=== PATIENT | female | born 1980 | race Caucasian/White ===

== ENCOUNTER 2016-07-10 18:11 | Inpatient (IN) | payer OTHER, MEDICAID ==
[~2016-07-10] VITALS: Ht 175.3 cm; Wt 54.9 kg
[~2016-07-10 18:11] MED LIST: BACLOFEN; BISA10SU8 RC; CALCIUM PO; CARB15DR4 OP; CYCL30DR OP; DENO60DI SQ; ESLI800T GT; LEVE500T13 PO; LEVO50TA8 GT; MULT PO; NEO/3.5O OP; PETR3.5O OP; PILO5TAB PO; PLA200 PO; TIZA4TAB11 PO; TOPI200T PO; TRAZ-123 GT; UBID50TA3 PO; VORT10TA GT; [UNRECOGNIZED DRUG - OTHER] RC
[2016-07-10 20:00] VITALS: BP 106/73; PULSE 55; RESP 18; TEMP 98.5; O2SAT 98
--- NOTE | 2016-07-10 20:00 | NUR ---
Admission Assessment Received patient lying in bed, awake, alert but non-verbal. Able to follow simple commands and nod "yes" and "no". Mother is at the bedside. MD called for admission orders, all new orders noted. MD to see patient tonight and reconcile medications, per mother, PM medications already administered for tonight. Assessment complete, vital signs stable, no complain of pain at this time. Kishan-Staton button noted to left abdomen, Baclofen pump noted to right abdomen. IV was started to right forearm, #22 gauge, patient tolerated well. Plan of care discussed with patient and mother, mother verbalized understanding. Patient is not verbally able to make needs known, adaptive call light is within reach, all fall and safety precautions in place, will continue to monitor closely for change in patient status.
[2016-07-10] MEDS ORDERED: MELA1TAB29 PO (20:22)
[2016-07-10 21:21] LABS: BASOPHILS % (AUTO) 0.8 % (0.0-2.0); EOSINOPHILS # (AUTO) 0.3 K/uL (0.0-0.4); EOSINOPHILS % (AUTO) 6.7 % (0.0-4.0); HEMOGLOBIN 12.4 g/dL (12.0-16.0); LYMPHOCYTES # (AUTO) 1.8 K/uL (1.0-5.5); LYMPHOCYTES % (AUTO) 42.2 % (20.5-51.5); MEAN CORPUSCULAR HEMOGLOBIN 31 pg (27-31); MEAN CORPUSCULAR HGB CONC 35 % (32-36); MEAN CORPUSCULAR VOLUME 90 fL (79.0-98.0); MONOCYTES # (AUTO) 0.3 K/uL (0.0-1.0); MONOCYTES % (AUTO) 7.2 % (1.7-9.3); NEUTROPHILS # (AUTO) 1.8 K/uL (1.8-7.7); NEUTROPHILS % (AUTO) 43.1 % (40.0-70.0); PLATELET COUNT (AUTO) 189 K/uL (130-430); RED BLOOD CELL COUNT(AUTO) 3.99 MIL/uL (4.2-6.2); RED CELL DISTRIBUTION WIDTH 12.7 % (9.0-15.0); WHITE BLOOD COUNT (AUTO) 4.2 K/uL (4.8-10.8)
[2016-07-10 21:28] LABS: CALCIUM 9.1 mg/dL (8.4-11.0); CREATININE 0.56 mg/dL (0.55-1.30); POTASSIUM 3.3 mmol/L (3.5-5.1)
[2016-07-10 21:33] LABS: ALBUMIN 3.8 g/dL (3.4-4.8); TOTAL BILIRUBIN 0.2 mg/dL (0.0-1.0)
--- NOTE | 2016-07-10 22:16 | NUR ---
RN Rounds Patient is resting quietly in bed, no acute distress noted, mother is at the bedside. Warm blanket provided and patient made comfortable in bed. Adaptive call light is within reach, all fall and safety precautions in place, will continue to monitor closely.
[2016-07-10 22:25] VITALS: BP 106/73; PULSE 55; RESP 18; TEMP 98.5; O2SAT 98
[2016-07-10] MEDS ORDERED: MILK OF MAGNESIA 30 ML UDC PO PRN (23:45)
--- NOTE | 2016-07-11 00:24 | NUR ---
RN Rounds Patient is sleeping but easily arousable, no acute distress noted. Patient repositioned and made comfortable in bed with pillow support. Call light is within reach, all fall and safety precautions in place, will continue to monitor closely.
[2016-07-11] MEDS ORDERED: AZITHROMYCIN 500 MG/VIAL (ZITHROMAX) IV ONE (00:59)
[2016-07-11] MEDS: KCL 20 mEq in D5NS 1000 mL 1,000 ML IV SCH ×2 (02:03→15:32)
[2016-07-11] MEDS: AZITHROMYCIN 500 MG in NS 250 ML IV SCH (02:04)
[2016-07-11 02:15] VITALS: BP 96/60; PULSE 61; RESP 18; TEMP 96.1; O2SAT 96
--- NOTE | 2016-07-11 02:31 | NUR ---
RN Rounds Patient is resting quietly in bed, requested to get up to the restroom, was assisted by 2 nurses and safely back to bed. Made comfortable in bed with pillow support. Tube feeding and IV fluids infusing well. Call light is within reach, encouraged to call with all needs. All fall and safety precautions in place, will continue to monitor closely.
[2016-07-11 03:56] VITALS: BP 106/64; PULSE 56; RESP 18; TEMP 96.6; O2SAT 97
--- NOTE | 2016-07-11 04:33 | NUR ---
RN Rounds Patient is resting quietly in bed, no acute distress noted. Patient was assisted to the restroom and safely back to bed. Vital signs stable, tube feeding and IV fluids infusing well. Call light is within reach, all fall and safety precautions in place, will continue to monitor closely.
[2016-07-11] MEDS ORDERED: LEVOTHYROXINE SODIUM 0.05 MG TABLET GT SCH (06:00)
--- NOTE | 2016-07-11 07:09 | NUR ---
Closing Notes Patient is resting quietly in bed, complained of nausea, MD paged x2, will be paged again. Patient made comfortable in bed. Patient is stable. SBAR report was endorsed to AM nurse at bedside.
--- NOTE | 2016-07-11 07:36 | NUR ---
Called Dr Smalls called back, new orders noted for Zofran 4mg IVP Q4 PRN. Endorsed to AM nurse.
[2016-07-11] MEDS ORDERED: ONDANSETRON HCL 4 MG/2 ML VIAL IVP PRN (07:45)
--- NOTE | 2016-07-11 08:00 | NUR ---
am notes pt in bed awake, non verbal. ivf infusing well on the rt forearm of d5ns +20meq kcl at 75. gt feeding infusing at this time. no acute distress noted. safety precaution observed. on bed alarm. will monitor.
[2016-07-11 08:04] VITALS: BP 100/61; PULSE 97; RESP 16; TEMP 97.4; O2SAT 97
--- NOTE | 2016-07-11 08:50 | NUR ---
Nutrition Update Levi Scale 16 noted. Pt admitted for hypothermia. Diet: Peptamen 1.5 at 60 ml/hr, Free Water Flush: 100 Q6H via GT BMI: 18 kg/m2 RD to follow per nutrition care standards.
[2016-07-11] MEDS ORDERED: DEXAMETH OP SCH (09:00)
[2016-07-11] MEDS ORDERED: levETIRAcetam 500 MG TABLET PO SCH (09:00)
[2016-07-11] MEDS: cycloSPORINE 0.05%, 0.4 ML OPHTHALMIC EMULSION DROPERETTE OP SCH ×2 (09:00→09:48)
[2016-07-11] MEDS ORDERED: PILOCARPINE 5 MG PO SCH (09:00)
[2016-07-11] MEDS ORDERED: NEO OP SCH (09:00)
[2016-07-11] MEDS ORDERED: POLYMYX B SULF OP SCH (09:00)
[2016-07-11 09:03] LABS: BILIRUBIN,URINE NEGATIVE (NEGATIVE); BLOOD, URINE 3+ (NEGATIVE); CLARITY/URINE CLEAR (CLEAR); COLOR,URINE YELLOW (YELLOW); GLUCOSE,URINE NEGATIVE (NEGATIVE); KETONES,URINE NEGATIVE (NEGATIVE); LEUKOCYTE ESTERASE ,URINE NEGATIVE (NEGATIVE); NITRITE, URINE NEGATIVE (NEGATIVE); PROTEIN URINE NEGATIVE (NEGATIVE); UROBILINOGEN,URINE 0.2 (0.2-1.0)
[2016-07-11 09:08] LABS: BACTERIA,URINE RARE /HPF (None Seen); RBC,URINE >100 /HPF (0-3); WBC,URINE 0-3 /HPF (0-3)
[2016-07-11] MEDS: TOPIRAMATE 100 MG TABLET(Topamax) PO SCH ×2 (09:46→21:00)
[2016-07-11] MEDS: MULTIVITAMINS TAB 1 TABLET PO SCH (09:47)
[2016-07-11] MEDS: HYDROXYCHLOROQUINE SULFATE 200 MG TABLET PO SCH (09:47)
[2016-07-11] MEDS: BISACODYL 10 MG/SUPPOSITORY RC SCH (09:48)
--- NOTE | 2016-07-11 10:00 | NUR ---
gt feeing Pt's mom at bedside. wants to stop feeding at this time and resume it tonight.
[2016-07-11] MEDS ORDERED: MILK OF MAGNESIA 30 ML UDC PO PRN (10:45)
[2016-07-11 10:47] VITALS: Ht 175.3 cm; Wt 54.9 kg
--- NOTE | 2016-07-11 11:30 | NUR ---
ROUNDS SEEN BY DR. FERRIS AND SPOKE TO PT MOM AT BEDSIDE. PER . OKAY TO USE HOME MEDICATIONS AT HOME.
--- NOTE | 2016-07-11 11:54 | NUR ---
PT HAS A QUANG BUTTON ON LEFT ABD. SKIN IN TACT AND DRY. ROTATED AND CHECKED PLACEMENT BEFORE FEEDING AND MEDICATION. HOB UP. INCISION ON RIGHT LOWER ABD. SKIN IN TACT WITH NO SIGNS OF INFECTION. Addendum: 07/11/16 at 1157 by Jeannette HALL Amended: Links added.
[2016-07-11 12:00] VITALS: BP 108/67; PULSE 72; RESP 18; TEMP 98; O2SAT 99
[2016-07-11] MEDS ORDERED: COMMUNICATION ORDER XX ONE (13:00)
--- NOTE | 2016-07-11 13:00 | NUR ---
BATHROOM ASSISTED TO THE BATHROOM WITH 2 PERSONS ASSIST. PT HAD BOWEL MOVEMENT AFTER SUPPOSITORY GIVEN.
--- NOTE | 2016-07-11 13:25 | NUR ---
home meds gen teal eye ointment x2 and pilocarpine meds given to pharmacy for labeling. pt mom will bring the brintellex meds from home.
[2016-07-11 14:10] VITALS: BP 102/54; PULSE 62; RESP 16; TEMP 98.5; O2SAT 99
[2016-07-11] MEDS: PILOCARPINE 5 MG PO SCH ×2 (15:29→21:40)
[2016-07-11 16:00] VITALS: BP 108/67; PULSE 62; RESP 18; TEMP 98; O2SAT 99
--- NOTE | 2016-07-11 16:03 | NUR ---
NOTES IN BED, RESTING MOM AT BEDSIDE. NO S/S OF PAIN OR DISCOMFORT. REPOSITIONED FOR COMFORT. WILL MONITOR.
[2016-07-11] MEDS ORDERED: [UNRECOGNIZED DRUG - OTHER] PO SCH (17:00)
--- NOTE | 2016-07-11 18:27 | NUR ---
NOTES ASSISTED TO THE BATHROOM WITH 2 PERSONS ASSIST. FAMILY AT BEDSIDE. IVF INFUSING WELL. SIT UP FOR DINNER. DENIES ANY PAIN OR DISCOMFORT. ALL NEEDS MEET. WILL ENDORSE
[2016-07-11] MEDS: [UNRECOGNIZED DRUG - OTHER] OP SCH (18:49)
--- NOTE | 2016-07-11 20:00 | NUR ---
ROUNDS PATIENT RESTING COMFORTABLY IN BED, NOT IN DISTRESS, VITALS STABLE, NON VERBAL, NO SIGNS OF ANY PAIN AND DISCOMFORT AT THIS TIME. ASSESSMENT DONE AND DOCUMENTED. SEE FLOWSHEET. NEEDS ATTENDED TO. FAMILY AT THE BEDSIDE. SAFETY AND FALL PRECAUTION MEASURES IN PLACED. BED IN LOW AND LOCKED POSITION. CALL LIGHT PLACED WITHIN REACH.
[2016-07-11] MEDS ORDERED: tiZANidine HCL 4 MG TABLET PO SCH (21:00)
--- NOTE | 2016-07-11 21:30 | NUR ---
MEDICATIONS DUE MEDICATIONS GIVEN SCHEDULED, TOLERATED WELL. WILL CONTINUE TO MONITOR.
[2016-07-11] MEDS: SENNOSIDES 8.6 MG TABLET GT SCH (21:35)
[2016-07-11] MEDS: traZODone HCL 50 MG TABLET (DESYREL) GT SCH (21:37)
[2016-07-11] MEDS: levETIRAcetam 500 MG TABLET GT SCH (21:39)
[2016-07-11] MEDS: VORTIOXETINE 10 MG PO SCH (21:40)
[2016-07-11] MEDS: GENTEAL TEARS OP SCH (21:41)
--- NOTE | 2016-07-12 00:08 | NUR ---
PATIENT RESTING: Patient resting quietly. No acute distress noted. Vital signs within normal range.
[2016-07-12] MEDS: AZITHROMYCIN 500 MG in NS 250 ML IV SCH (00:40)
--- NOTE | 2016-07-12 02:15 | NUR ---
PATIENT RESTING: Patient resting quietly. No acute distress noted. Vital signs within normal range.
--- NOTE | 2016-07-12 04:39 | NUR ---
PATIENT RESTING: Patient resting quietly. No acute distress noted. Vital signs within normal range.
[2016-07-12 05:17] VITALS: BP 93/57; PULSE 75; RESP 16; TEMP 96.3; O2SAT 93
[2016-07-12] MEDS: [UNRECOGNIZED DRUG - OTHER] OP SCH ×3 (06:41→17:23)
[2016-07-12] MEDS: KCL 20 mEq in D5NS 1000 mL 1,000 ML IV SCH (06:41)
--- NOTE | 2016-07-12 06:50 | NUR ---
CLOSING NOTES PATIENT AWAKE, VITALS STABLE, ALL NEEDS ATTENDED TO. WILL ENDORSE TO INCOMING SHIFT NURSE.
--- NOTE | 2016-07-12 08:00 | NUR ---
initial notes rec patient awake alert but non verbally responsive with hob elevated. ivf infusing well on the r forearm. no infiltration noted. with bilateral padded rails to prevent injury. resp easy an unlabored and and no acute distress noted. with gaby type gt and clamped at this time . bed in low position and side rails up and locked.call light withn reach and able to make needs known
[2016-07-12] MEDS: BISACODYL 10 MG/SUPPOSITORY RC SCH (10:11)
[2016-07-12] MEDS: MULTIVITAMINS TAB 1 TABLET PO SCH (10:11)
[2016-07-12] MEDS: levETIRAcetam 500 MG TABLET GT SCH (10:14)
[2016-07-12] MEDS: TOPIRAMATE 100 MG TABLET(Topamax) PO SCH (10:15)
[2016-07-12] MEDS: HYDROXYCHLOROQUINE SULFATE 200 MG TABLET PO SCH (10:19)
--- NOTE | 2016-07-12 10:30 | NUR ---
rounds mother at the bedside and help out with with adl at the bedside.no sob noted. waited for mom for the meds to be given . showed techniques how to give to the her gaby tube for meds.
[2016-07-12 12:06] VITALS: BP 109/68; PULSE 65; RESP 17; TEMP 97.8; O2SAT 98
--- NOTE | 2016-07-12 13:31 | NUR ---
rounds ambulated to the br with max assistance w ith 2 persons and kandace well. no sonb noted.
--- NOTE | 2016-07-12 15:57 | NUR ---
rounds 12 0z of water given through the gaby gt as per mothers request and kandace well. nmo acute distress noted.
[2016-07-12 16:52] VITALS: BP 110/70; PULSE 70; RESP 17; TEMP 98; O2SAT 98
--- NOTE | 2016-07-12 17:00 | NUR ---
PHYSICAL THERAPY CO-SIGN The Physical Therapy Progress Notes documented by Dryer And Washer Mechanic have been reviewed. Reviewed/Co-Signed by: Candida Brown PT Documentation Done by: FRANC CARDONA RECEIVING SUPERVISOR Addendum: 07/13/16 at 0836 by Candida Brown PT Amended: Links added.
--- NOTE | 2016-07-12 17:29 | NUR ---
rounds resting comfortably at this. gel eye med given early per mother's request. no acute distress noted.
--- NOTE | 2016-07-12 18:30 | NUR ---
closing notes resting comfortably in bed. mother at the bedside. no c/o pain. pt ambulated to the br with max assists. no acute distress. no sob noted. stable and needs attended.
--- NOTE | 2016-07-12 19:50 | NUR ---
ROUNDS PATIENT RESTING COMFORTABLY IN BED, NOT IN DISTRESS, VITALS STABLE, NO PAIN AND DISCOMFORT AT THIS TIME. ASSESSMENT DONE AND DOCUMENTED. SEE FLOWSHEET. NEEDS ATTENDED TO. SAFETY AND FALL PRECAUTION MEASURES IN PLACED. BED IN LOW AND LOCKED POSITION. BED ALARM ON. CALL LIGHT PLACED WITHIN REACH.
--- NOTE | 2016-07-12 21:30 | NUR ---
MEDICATION DUE MEDICATIONS GIVEN SCHEDULED, TOLERATED WELL. WILL CONTINUE TO MONITOR.
[2016-07-12] MEDS: traZODone HCL 50 MG TABLET (DESYREL) GT SCH (21:45)
[2016-07-12] MEDS: SENNOSIDES 8.6 MG TABLET GT SCH (21:45)
[2016-07-12] MEDS: KEPPRA 500 MG GT SCH (21:48)
[2016-07-12] MEDS: TOPAMAX 200 MG GT SCH (21:49)
[2016-07-12] MEDS: ZANAFLEX 4 MG GT SCH (21:50)
[2016-07-12] MEDS: GENTEAL TEARS OP SCH (21:51)
[2016-07-12] MEDS: VORTIOXETINE 10 MG PO SCH (21:51)
--- NOTE | 2016-07-13 00:10 | NUR ---
PATIENT RESTING: Patient resting quietly. No acute distress noted. Vital signs within normal range.
[2016-07-13] MEDS: AZITHROMYCIN 500 MG in NS 250 ML IV SCH (00:35)
[2016-07-13] MEDS: KCL 20 mEq in D5NS 1000 mL 1,000 ML IV SCH ×2 (00:38→15:47)
--- NOTE | 2016-07-13 02:15 | NUR ---
ROUNDS PATIENT ASLEEP, NO SIGNS OF SOB NOR ANY PAIN AND DISCOMFORT NOTED. WILL CONTINUE TO MONITOR.
--- NOTE | 2016-07-13 04:05 | NUR ---
PATIENT RESTING: Patient resting quietly. No acute distress noted. Vital signs within normal range.
[2016-07-13 04:40] VITALS: BP 100/58; PULSE 67; RESP 18; TEMP 97.3; O2SAT 98
[2016-07-13] MEDS: [UNRECOGNIZED DRUG - OTHER] OP SCH ×3 (06:23→19:13)
--- NOTE | 2016-07-13 06:59 | NUR ---
CLOSING NOTES PATIENT REMAINED STABLE, ALL NEEDS ATTENDED TO. SAFETY AND FALL PRECAUTION MEASURES MAINTAINED. BED IN LOW AND LOCKED POSITION. CALL LIGHT PLACED WITHIN REACH.
[2016-07-13 08:00] VITALS: BP 112/93; PULSE 68; RESP 18; TEMP 97.6
--- NOTE | 2016-07-13 08:00 | NUR ---
initial notes rec patient in bed with ivf infusing well on the l forearm with hob elevated. no sob noted. resp easy and unlabored. bed in low position and side rails up and locked. call light within reached and knows when to call for assistance. will continue to monitor patient.
--- NOTE | 2016-07-13 10:00 | NUR ---
rounds pt was up to the br with max assists and had a bowel movement. am care was also rendered. no sob noted. mother at bedside. due meds given through the gaby tube and kandace well. no residual noted.
[2016-07-13] MEDS: MULTIVITAMINS TAB 1 TABLET PO SCH (10:15)
[2016-07-13] MEDS: TOPAMAX 200 MG GT SCH ×2 (10:16→21:45)
[2016-07-13] MEDS: KEPPRA 500 MG GT SCH ×2 (10:16→21:44)
[2016-07-13] MEDS: PILOCARPINE 5 MG PO SCH (10:17)
[2016-07-13] MEDS: BISACODYL 10 MG/SUPPOSITORY RC SCH (10:17)
[2016-07-13] MEDS: HYDROXYCHLOROQUINE SULFATE 200 MG TABLET PO SCH (10:17)
[2016-07-13 11:21] VITALS: BP 103/70; PULSE 65; RESP 16; TEMP 98.2; O2SAT 99
--- NOTE | 2016-07-13 12:00 | NUR ---
rounds up and walking with p.t in the hallway and kandace well with max assists. no acute distress noted.
--- NOTE | 2016-07-13 14:00 | NUR ---
rounds flushed gt with 240 cc sterile water as per moms' request. no sob noted. call light withn reached and requested for the br and with max assist with 2 nurses/ kandace well.
--- NOTE | 2016-07-13 15:14 | NUR ---
PHYSICAL THERAPY CO-SIGN The Physical Therapy Progress Notes documented by Field Organizer have been reviewed. Reviewed/Co-Signed by: Mercy Bradley, PT Documentation Done by: Donovan Almendarez PTA I concur with the documentation of this CONVEYOR SYSTEM DISPATCHER. Plan: continue PT as per plan of care. Addendum: 07/13/16 at 1515 by Mercy Bradley PT Amended: Links added.
--- NOTE | 2016-07-13 16:00 | NUR ---
rounds was taken to the br with max assists and kandace well. sleeps at intervals. no acute distress.
[2016-07-13 16:11] VITALS: BP 115/75; PULSE 60; RESP 16; TEMP 97.8; O2SAT 100
--- NOTE | 2016-07-13 19:00 | NUR ---
closing notes dr palacios came and spoke with pt's mom and possible d/c in am.no acute distress noted. needs attended and stable. bed in low position and side rails up and locked.
[2016-07-13 20:35] VITALS: BP 111/57; PULSE 62; RESP 16; TEMP 96.5; O2SAT 100
--- NOTE | 2016-07-13 20:36 | NUR ---
Opening Note Report received from Iris JAY. Patient is in stable condition. Currently resting in bed. Mom is at the bedside. IV is on the right hand 22g running D51/2NS+20KCL@75ml/hr. Seizure precautions are in place. Patient has a special call light specify for her needs. Instructed to use it whenever in need of assistance. Bed is in low position. G-tube is in place and is currently clamped. Will continue to monitor throughout the shift.
--- NOTE | 2016-07-13 20:40 | NUR ---
Spoke with Spoke with Dr. Smalls in the nurses station. stated that patient will be dc'd tomorrow. Med recon is done. Patient will continue physical therapy at home. Dr. Smalls wants to be called tomorrow to give an official dc order. also wants case management to arrange medical van to transport the patient home. Will endorse to the am shift.
[2016-07-13] MEDS: traZODone HCL 50 MG TABLET (DESYREL) GT SCH (21:36)
[2016-07-13] MEDS: SENNOSIDES 8.6 MG TABLET GT SCH (21:36)
[2016-07-13] MEDS: ZANAFLEX 4 MG GT SCH (21:46)
[2016-07-13] MEDS: GENTEAL TEARS OP SCH (21:47)
[2016-07-13] MEDS: VORTIOXETINE 10 MG PO SCH (21:48)
--- NOTE | 2016-07-13 22:10 | NUR ---
Rounds Patient is currently in stable condition. Mom is at the bedside. All medications were given to the patient via G-tube. She tolerated it well. Tube feeding, Peptamin @60ml/hr was started as well. No residuals from G-tube noted. Patient was assisted to the restroom and back into bed. Special call light is within reach. Bed is in low position. Will continue to monitor.
[2016-07-14] VITALS: BP 106/66; PULSE 59; RESP 18; TEMP 97.9; O2SAT 98
[2016-07-14] MEDS: AZITHROMYCIN 500 MG in NS 250 ML IV SCH ×2
--- NOTE | 2016-07-14 00:15 | NUR ---
Rounds Assisted patient to the restroom and back into bed. Special call light is within reach. Bed is in low position.
[2016-07-14] MEDS: KCL 20 mEq in D5NS 1000 mL 1,000 ML IV SCH (01:47)
--- NOTE | 2016-07-14 02:32 | NUR ---
Rounds Patient is awake and resting in bed. Call light is within reach.
[2016-07-14 04:00] VITALS: BP 102/58; PULSE 61; RESP 18; TEMP 97.2; O2SAT 98
--- NOTE | 2016-07-14 04:42 | NUR ---
Rounds Patient is awake and resting in bed. Special call light is within reach.
[2016-07-14] MEDS: [UNRECOGNIZED DRUG - OTHER] OP SCH (06:20)
--- NOTE | 2016-07-14 06:35 | NUR ---
Closing Note Assisted patient to the restroom and back into bed. IV is saline locked per patient's request. G-tube clamped. No residuals throughout the shift. Patient is in stable condition. Special call light is within reach. Bed is in low position. Seizure precautions are in place. Will endorse to the oncoming shift.
--- NOTE | 2016-07-14 08:00 | NUR ---
OPENING NOTE PT IS APHASIC YET CAN COMMUNICATE BY TYPING ON HER PERSONAL COMPUTER AND NODDING. A/O X 4, PT STATED SHE IS NOT IN PAIN AND WANTS TO GO HOME
[2016-07-14] MEDS: BISACODYL 10 MG/SUPPOSITORY RC SCH (09:00)
--- NOTE | 2016-07-14 10:00 | NUR ---
ROUNDS PT IN BED, HER MOTHER IS AT BEDSIDE
[2016-07-14] MEDS: PILOCARPINE 5 MG PO SCH (10:19)
[2016-07-14] MEDS: MULTIVITAMINS TAB 1 TABLET PO SCH (10:19)
[2016-07-14] MEDS: HYDROXYCHLOROQUINE SULFATE 200 MG TABLET PO SCH (10:19)
[2016-07-14] MEDS: TOPAMAX 200 MG GT SCH (10:26)
[2016-07-14] MEDS: KEPPRA 500 MG GT SCH (10:26)
[2016-07-14 10:55] VITALS: BP 132/76; PULSE 76; RESP 15; TEMP 98.4; O2SAT 98
[2016-07-14 11:41] VITALS: BP 132/76; PULSE 76; RESP 16; TEMP 98.4; O2SAT 98
--- NOTE | 2016-07-14 11:45 | NUR ---
D/C Patient Patient given medication reconciliation form and D/C instructions. Exit Care provided. Patient verbalized understanding. MD discussed with patient the results and treatment provided. Patient is unable to ambulate without assistance but she will be going home in her personal wheelchair when discharge to home. Patient in stable condition, ID band removed. IV catheter removed, intact and dressing applied, no active bleeding. Rx given, and patient took all of her personal meds with her. Patient educated on pain management. All belongings sent with patient.
[2016-07-14 12:00] VITALS: BP 104/62; PULSE 60; RESP 16; TEMP 97.9; O2SAT 98
== END 2016-07-14 12:05 | disposition home or self-care (01) | DRG 193 ==
LOC: SMU 18:13
PROVIDERS: ADMIT Family Medicine; ATTEND Family Medicine
DX: J18.9 Pneumonia, unspecified organism (principal); G82.50 Quadriplegia, unspecified; G83.9 Paralytic syndrome, unspecified; G40.909 Epilepsy, unspecified, not intractable, without status epilepticus; E86.0 Dehydration; Z87.820 Personal history of traumatic brain injury
CPT/HCPCS: 36415; 71010; 80053; 81000-TC; 85025; 97110-GP; 97116-GP; 97530-GP; J0456; J2405; J7050

== ENCOUNTER 2019-04-09 22:22 | Emergency (ER) | payer OTHER, MEDICAID ==
[~2019-04-09] VITALS: Ht 172.7 cm; Wt 55.3 kg
[~2019-04-09 22:22] MED LIST changes: +HYDR200T80 PO; -LEVE500T13 PO; +LEVE500T9 PO; +MELA1TAB29 PO; -PLA200 PO; -TRAZ-123 GT; +TRAZ-250 GT
[2019-04-09 22:34] VITALS: BP_SYST 102
--- NOTE | 2019-04-09 22:41 | NUR ---
Placed in room 2 . Placed on desk monitor, blood pressure machine and pulse oximeter. To gown for exam. Side rails up.
--- NOTE | 2019-04-09 22:41 | NUR ---
pt was dressed in gown, cool measurse were initiated. Ice packs placed to bilateral axillary.
--- NOTE | 2019-04-09 22:50 | NUR ---
BROUGHT IN BY MOTHER FOR FEVER COUGH,SOB,SORE THROAT,RUNNY NOSE,BODYACHES. PLACED IN BED 2.
--- NOTE | 2019-04-09 22:52 | NUR ---
EKG done at bedside
--- NOTE | 2019-04-09 22:55 | NUR ---
GAUGE 18 IV LINE ESTABLISHED TO THE RIGHT WRIST. BLOOD ALSO DRAWN AND SENT TO THE LAB.
--- NOTE | 2019-04-09 22:56 | NUR ---
Rechecked temperature, orally 99.5. Dr. Cox made aware.
--- NOTE | 2019-04-09 23:09 | NUR ---
ER-MD CAME BY BEDSIDE TO EVALUATE PT.
[2019-04-09] MEDS ORDERED: NACL 0.9% 1,000 ML IV ONE (23:17)
--- NOTE | 2019-04-09 23:28 | NUR ---
NS 1 LITER BOLUS GIVEN ORDERED. RT AT BEDSIDE TO GIVE BREATHING TREATMENT.
[2019-04-09] MEDS ORDERED: LevALBUTEROL HCL 1.25 MG/0.5 ML *CONC.* VIAL.NEB (XOPENEX CONC.) INH ONE (23:30)
[2019-04-09 23:36] LABS: BASOPHILS % (AUTO) 0.1 % (0.0-2.0); EOSINOPHILS # (AUTO) 0.1 K/uL (0.0-0.4); EOSINOPHILS % (AUTO) 0.6 % (0.0-4.0); HEMOGLOBIN 12.2 g/dL (12.0-16.0); LYMPHOCYTES # (AUTO) 0.7 K/uL (1.0-5.5); LYMPHOCYTES % (AUTO) 7.5 % (20.5-51.5); MEAN CORPUSCULAR HEMOGLOBIN 31 pg (27-31); MEAN CORPUSCULAR HGB CONC 34 % (32-36); MEAN CORPUSCULAR VOLUME 92 fL (79.0-98.0); MONOCYTES # (AUTO) 0.5 K/uL (0.0-1.0); MONOCYTES % (AUTO) 5.5 % (1.7-9.3); NEUTROPHILS # (AUTO) 7.8 K/uL (1.8-7.7); NEUTROPHILS % (AUTO) 86.3 % (40.0-70.0); PLATELET COUNT (AUTO) 252 K/uL (130-430); RED CELL DISTRIBUTION WIDTH 13.5 % (9.0-15.0); WHITE BLOOD COUNT (AUTO) 9.1 K/uL (4.8-10.8)
[2019-04-09 23:39] LABS: CALCIUM 8.3 mg/dL (8.4-11.0); CREATININE 0.73 mg/dL (0.55-1.30); INR 1.1 (0.8-1.2); POTASSIUM 3.4 mmol/L (3.5-5.1); PROTHROMBIN TIME 10.7 SECS (9.5-12.5)
[2019-04-09 23:45] LABS: ALBUMIN 3.7 g/dL (3.4-4.8); TOTAL BILIRUBIN 0.4 mg/dL (0.0-1.0)
--- NOTE | 2019-04-09 23:58 | NUR ---
URINE SPECIMEN COLLECTED, URINE HCG TEST DONE AND IS NEGATIVE. SPECIMEN SENT TO THE LAB.
--- NOTE | 2019-04-10 00:02 | NUR ---
PORTABLE CXR DONE.
[2019-04-10 00:28] LABS: BILIRUBIN,URINE NEGATIVE (NEGATIVE); BLOOD, URINE NEGATIVE (NEGATIVE); CLARITY/URINE CLEAR (CLEAR); COLOR,URINE YELLOW (YELLOW); GLUCOSE,URINE NEGATIVE (NEGATIVE); KETONES,URINE NEGATIVE (NEGATIVE); LEUKOCYTE ESTERASE ,URINE NEGATIVE (NEGATIVE); NITRITE, URINE NEGATIVE (NEGATIVE); PH,URINE 7.5 (5.0-8.0); PROTEIN URINE NEGATIVE (NEGATIVE); UROBILINOGEN,URINE 0.2 (0.2-1.0)
--- NOTE | 2019-04-10 00:30 | NUR ---
YHJG=140.2.AND COMPLAINS OF GENERALIZED BODYACHES AND MUSCLE SPASM. MOTHER WANTS HER NIGHT TIME MEDICATIONS GIVEN. ER-MD NOTIFIED.
--- NOTE | 2019-04-10 00:50 | NUR ---
MOTHER ADMINISTERED ZANAFLEX 4 MG AND TRINTELLIX 10 MG VIA G-TUBE PER ER-MD.
[2019-04-10] MEDS ORDERED: IBUPROFEN 100 MG/5 ML UDC PO ONE (01:15)
--- NOTE | 2019-04-10 01:35 | NUR ---
Temp 100.0F. 600mg ibuprofen GT administered. Pt tolerated well.
--- NOTE | 2019-04-10 02:38 | NUR ---
ER-MD BACK AT BEDSIDE TO RE-EVALUATE AND DISCUSS PLAN OF CARE WITH PT. AND MOTHER. AKNM=588.4 AND BP=89/49. AWARE.
[2019-04-10] MEDS ORDERED: NACL 0.9% 1,000 ML IV ONE (02:46)
--- NOTE | 2019-04-10 02:52 | NUR ---
ANOTHER LITER OF NS BOLUS GIVEN.
--- NOTE | 2019-04-10 03:30 | NUR ---
IVF NS started by RN @ 7310 completed @ 0200 IVF NS started by RN @ 4740 completed @ 0330.
--- NOTE | 2019-04-10 03:35 | NUR ---
TEMPERATURE=99.5, BP=94/56. JAMES SAID PT.OK TO GO HOME. DISCHARGED STABLE AND IMPROVED. VERBAL AND WRITTEN AFTERCARE INSTRUCTIONS GIVEN TO PATIENT AND MOTHER. VERBALIZED UNDERSTANDING.
[2019-04-10 03:45] VITALS: BP_SYST 94
== END 2019-04-10 03:45 | disposition home or self-care (01) ==
LOC: SED 22:22
DX: B34.9 Viral infection, unspecified (principal); J02.9 Acute pharyngitis, unspecified; R06.00 Dyspnea, unspecified; R50.9 Fever, unspecified; J45.909 Unspecified asthma, uncomplicated; Z79.899 Other long term (current) drug therapy; Z88.6 Allergy status to analgesic agent; Z88.1 Allergy status to other antibiotic agents; Z88.0 Allergy status to penicillin; Z88.8 Allergy status to other drugs, medicaments and biological substances
CPT/HCPCS: 36415; 71045; 80053; 81003; 81025; 83605; 84484; 85025; 85610; 85730; 86710; 87040; 93005; 94640; 99284; J7030 ×2; J7612

== ENCOUNTER 2019-04-17 13:25 | Emergency (ER) | payer OTHER, MEDICAID ==
[~2019-04-17] VITALS: Ht 172.7 cm; Wt 55.8 kg
[2019-04-17 13:36] VITALS: BP_SYST 130
--- NOTE | 2019-04-17 13:48 | NUR ---
Patient to ER bed 04 to gown for evaluation. Side rails up.
--- NOTE | 2019-04-17 14:05 | NUR ---
Dr Warner at bedside examining patient
--- NOTE | 2019-04-17 14:19 | NUR ---
PATIENT PRESENTS TO THE ER WITH HX OF COUGH AND CONGESTION FOR 10 DAYS; NO TRAUMA, NO OTHER REMARKABLE S/S; LOWER EXTREMITY BRACES FOR CONTRACTURE TREATMENT PRESENT; UPPER EXT CONTRACTURES PRESENT; PATIENT TO ER #4 AT 1350 AND ERMD EVALUATION AT 1410
--- NOTE | 2019-04-17 14:45 | NUR ---
Patient and mother given written and verbal discharge instructions and verbalizes understanding. ER MD discussed with patient the results and treatment provided. Patient in stable condition. ID arm band removed. Rx of augmentin given. Patient educated on pain management and to follow up with PMD. Pain Scale 0. Opportunity for questions provided and answered. Medication side effect fact sheet provided. wheelout via wheelchair accompanied mother.
[2019-04-17 14:57] VITALS: BP_SYST 130
--- NOTE | 2019-04-17 15:01 | NUR ---
REASSESSMENT BY ERMD; ACI GIVEN AND PARENT INDICATED FULL UNDERSTANDING; PATIENT DISCHARGED VIA WC, UNCHANGED
== END 2019-04-17 15:01 | disposition home or self-care (01) ==
LOC: SED 13:25
DX: J20.9 Acute bronchitis, unspecified (principal); J45.909 Unspecified asthma, uncomplicated; Z88.0 Allergy status to penicillin; Z88.1 Allergy status to other antibiotic agents; Z88.6 Allergy status to analgesic agent; Z88.8 Allergy status to other drugs, medicaments and biological substances; Z79.899 Other long term (current) drug therapy
CPT/HCPCS: 99283